=== PATIENT | female | born 1995 | race Caucasian/White ===

== ENCOUNTER 2021-03-28 06:00 | Inpatient (IN) ==
[2021-03-28] MEDS ORDERED: PITOCIN ONE ×2 (06:43→14:15)
[2021-03-28] MEDS ORDERED: BETADINE SOLN ONE (06:44)
[2021-03-28] MEDS ORDERED: D5 1/2 NS 1000 ML 1,000 ML IV ONE (06:44)
[2021-03-28] MEDS ORDERED: D5 1/2 NS 1L W PITOCIN 20 UNITS/L 20 UNITS/1,000 ML BAG IV ONE ×2 (06:45→18:55)
[2021-03-28] MEDS ORDERED: D5LR 1L W PITOCIN 10 UNITS/L 10 UNITS/1,000 ML BAG IV ONE (06:45)
[2021-03-28] MEDS: D5 1/2 NS 1000 ML 1,000 ML IV SCH ×2 (06:45→15:44)
--- NOTE | 2021-03-28 07:18 | DR.OB ---
OB Quick Note - Assessment/Plan Assessment/Plan: L&D 03/28/21 at 7:10am S-No complaint. O-Afebrile,VSS RAC=035 with good LTV, +accel, no decel. CTX=none CVX=1cm/50%/-2/VTX AROM with clear fluid. IUPC and FSE placed. A-IUP at 39 6/7 weeks for induction P-Begin pitocin induction Anticipate
[2021-03-28] MEDS ORDERED: PITOCIN IVP ONE (07:35)
[2021-03-28] MEDS ORDERED: D5LR 1L W PITOCIN 10 UNITS/L 10 UNITS/1,000 ML BAG IV PRN (07:35)
[2021-03-28] MEDS ORDERED: NUBAIN INJ 200 MG VIAL MULTIDOSE IVP PRN (07:35)
[2021-03-28] MEDS ORDERED: REGLAN INJ 10 MG VIAL IVP PRN ×3 (07:35→19:13)
[2021-03-28] MEDS ORDERED: PHENERGAN INJ 25 MG IM PRN ×2 (07:35→18:45)
[2021-03-28] MEDS ORDERED: MORPHINE SULFATE INJ 2 MG INJ IVP PRN (07:35)
[2021-03-28] MEDS ORDERED: STADOL INJ IVP PRN (07:36)
[2021-03-28 08:06] LABS: BILIRUBIN,URINE NEGATIVE (NEGATIVE); BLOOD/HEMOGLOBIN,URINE NEGATIVE (NEGATIVE); GLUCOSE, URINE NEGATIVE (NEGATIVE); KETONES,URINE NEGATIVE (NEGATIVE); LEUKOCYTE ESTERASE ,URINE NEGATIVE (NEGATIVE); NITRITES,URINE NEGATIVE (NEGATIVE); PROTEIN,URINE 1+ (NEGATIVE); UROBILINOGEN,URINE NORMAL (NORMAL)
[2021-03-28 08:07] LABS: APPEARANCE,URINE CLOUDY (CLEAR); COLOR,URINE YELLOW (YELLOW)
[2021-03-28 08:13] LABS: BASOPHILS # (AUTO) 0.1 X10^3/uL (0.0-0.1); BASOPHILS % (AUTO) 0.5 % (0.2-1.0); EOSINOPHILS # (AUTO) 0.1 x10^3/uL (0.0-0.2); EOSINOPHILS % (AUTO) 0.7 % (0.9-2.9); HEMATOCRIT 30.1 % (36.0-47.0); HEMOGLOBIN 10.6 g/dL (12.0-16.0); LYMPHOCYTES % (AUTO) 18.1 % (21.0-51.0); MEAN CORPUSCULAR HEMOGLOBIN 29.5 pg (27.0-34.0); MEAN CORPUSCULAR HGB CONC 35.2 g/dL (33.0-35.0); MEAN CORPUSCULAR VOLUME 83.8 fL (80.0-100.0); MEAN PLATELET VOLUME 9.7 fL (7.4-11.0); MONOCYTES # (AUTO) 0.7 x10^3/uL (0.3-0.8); MONOCYTES % (AUTO) 6.5 % (0.0-13.0); NEUTROPHILS # (AUTO) 8.2 x10^3/uL (2.2-4.8); NEUTROPHILS % (AUTO) 74.2 % (42.0-75.0); PLATELET COUNT 270 X10^3/uL (150.0-450.0); RED BLOOD COUNT 3.59 X10^6/uL (3.5-5.4); RED CELL DISTRIBUTION WIDTH 14.3 % (11.6-16.5); WHITE BLOOD COUNT 11.1 X10^3/uL (3.6-10.0)
[2021-03-28 08:15] LABS: BLOOD UREA NITROGEN 10 mg/dL (7-18); CALCIUM 9.1 mg/dL (8.5-10.1); CARBON DIOXIDE 22.6 mmol/L (21-32); CHLORIDE 104 mmol/L (98-107); CREATININE 0.55 mg/dL (0.55-1.02); SODIUM 137 mmol/L (136-145); eGFR NON BLACK RACES > 60 (>60)
[2021-03-28] MEDS ORDERED: STADOL INJ ONE (10:53)
--- NOTE | 2021-03-28 11:59 | DR.OB ---
OB Quick Note - Assessment/Plan Assessment/Plan: L&D 03/28/21 at 11:55am Pitocin=16mu/min. S-No complaint except CTX. O-Afebrile,VSS ZFD=606 with good LTV, +accel, no decel. CTX=q 1 1/2 to 2 min., about 45-55mmHg CVX=2cm/50%/-1 A-IUP at 39 6/7 weeks for induction P-Cont. pitocin induction Anticipate
[2021-03-28] MEDS ORDERED: LR 1000 ML IV 1,000 ML IV ONE ×2 (12:39→16:35)
[2021-03-28] MEDS ORDERED: FENTANYL VIAL INJ 100 mcg ONE ×2 (12:39→12:42)
[2021-03-28] MEDS ORDERED: NAROPIN EPIDURAL 0.2% 100 ML ONE (12:42)
[2021-03-28] MEDS ORDERED: VERSED ONE (14:15)
[2021-03-28] MEDS ORDERED: ANCEF 1 GRAM IV PREMIX* 2 G/100 ML BAG IV ONE (16:35)
--- NOTE | 2021-03-28 16:40 | DR.OB ---
OB Quick Note - Assessment/Plan Assessment/Plan: L&D 03/28/21 at 4:30pm S-No complaint. s/p epidural. O-Afebrile,VSS YWX=314 with good LTV, +accel, no decel. CTX=q 1 1/2 to 2 min., about 45-55mmHg CVX=3cm/75%/-1/VTX with caput but head not well applied to CVX A-IUP at 39 6/7 weeks with failure to dilate P-To C/S
[2021-03-28] MEDS ORDERED: DILAUDID INJ ONE (16:56)
[2021-03-28] MEDS ORDERED: MARCAINE/EPINEPHRINE ONE (16:56)
[2021-03-28] MEDS ORDERED: BENADRYL INJ 50 MG VIAL IVP PRN ×2 (18:45→19:13)
[2021-03-28] MEDS ORDERED: DILAUDID INJ IVP PRN (18:45)
[2021-03-28] MEDS ORDERED: ZOFRAN INJ 4 MG VIAL IVP PRN ×2 (18:45→19:13)
[2021-03-28] MEDS ORDERED: BARHEMSYS INJ IVP PRN (18:45)
[2021-03-28] MEDS ORDERED: TORADOL 30 MG VIAL IVP PRN (19:13)
[2021-03-28] MEDS ORDERED: MYLICON TAB 80 MG CHEW PO PRN (19:13)
[2021-03-28] MEDS ORDERED: NARCAN INJ IVP PRN (19:13)
[2021-03-28] MEDS ORDERED: ADACEL or BOOSTRIX TDaP VACCINE IM ONE (19:13)
[2021-03-28] MEDS ORDERED: D5 1/2 NS 1000 ML 1,000 ML with PITOCIN 20 UNITS IV SCH ×2 (19:13)
[2021-03-28] MEDS ORDERED: PERCOCET TAB 5/325 MG PO PRN (19:13)
[2021-03-28] MEDS ORDERED: NARCAN INJ ONE (21:28)
[2021-03-29 06:30] LABS: HEMATOCRIT 25.8 % (36.0-47.0)
[2021-03-29] MEDS: FERROUS GLUCONATE PO SCH ×2 (06:31→17:20)
[2021-03-29] MEDS: COLACE CAP 100 MG PO SCH ×2 (09:07→21:00)
[2021-03-29] MEDS: MOTRIN TAB 800 MG PO PRN ×2 (09:07→22:49)
[2021-03-29] MEDS: PRENATAL PLUS PO SCH (09:07)
[2021-03-29] MEDS: NexIUM PO SCH (09:38)
[2021-03-29] MEDS: BACTROBAN TOPICAL OINT TOP SCH ×2 (13:06→21:22)
[2021-03-29] MEDS: PERCOCET TAB 5/325 MG PO PRN ×2 (17:20→21:26)
[2021-03-30] MEDS: BACTROBAN TOPICAL OINT TOP SCH (05:21)
[2021-03-30] MEDS: FERROUS GLUCONATE PO SCH (06:08)
[2021-03-30 07:46] VITALS: BP 144/76
[2021-03-30] MEDS: NexIUM PO SCH (08:49)
[2021-03-30] MEDS: PRENATAL PLUS PO SCH (08:49)
[2021-03-30] MEDS: COLACE CAP 100 MG PO SCH (08:49)
[2021-03-30] MEDS: PERCOCET TAB 5/325 MG PO PRN (08:54)
== END 2021-03-30 12:30 | disposition home or self-care (01) | DRG 788 ==
LOC: LD 06:21 → OBS 19:15
PROVIDERS: ADMIT Specialist; ATTEND Specialist
DX: E66.01 Morbid (severe) obesity due to excess calories; O62.0 Primary inadequate contractions; Z3A.39 39 weeks gestation of pregnancy; Z37.0 Single live birth; O99.213 Obesity complicating pregnancy, third trimester; K21.9 Gastro-esophageal reflux disease without esophagitis; O26.893 Other specified pregnancy related conditions, third trimester; O99.013 Anemia complicating pregnancy, third trimester; D50.9 Iron deficiency anemia, unspecified